=== PATIENT | female | born 1940 | race Caucasian/White ===

== ENCOUNTER 2016-09-06 08:38 | Outpatient (CLI) | payer MEDICARE, BC ==
[2016-09-06 08:58] LABS: Hemoglobin A1c 11.6 % (4.0-6.0)
[2016-09-06 09:06] LABS: Anion Gap 14 mmol/L (10-20); BUN (Urea Nitrogen) 12 mg/dL (9.8-20.1); Calc. Creatinine Clearance 0 mL/min (70-130); Calcium 9.4 mg/dL (7.8-10.44); Carbon Dioxide 26 mmol/L (23-31); Chloride 98 mmol/L (98-107); Estimated GFR-MDRD 55; Glucose 428 mg/dL (83-110); Potassium 4.4 mmol/L (3.5-5.1); Sodium 134 mmol/L (136-145)
== END 2016-09-06 08:39 | disposition home or self-care (01) ==
LOC: MADLABBHPM 08:38
PROVIDERS: ATTEND Family Medicine
DX: R73.9 Hyperglycemia, unspecified (principal)
CPT/HCPCS: 36415; 80048; 83036

== ENCOUNTER 2016-09-09 11:05 | Outpatient (CLI) | payer MEDICARE, BC ==
--- NOTE | 2016-09-09 13:59 | RAD ---
LUMBAR SPINE SERIES THREE VIEWS HISTORY: Fall with back pain. COMPARISON: 04/06/2014 FINDINGS: There is a scoliotic deformity, convexed to the left. There are marked arthritic changes, with brit re disk narrowing at L2-L3, L3-L4, and L4-L5. No compression fractures. Pedicles are intact. IMPRESSION: Scoliosis and arthritic changes of the spine. POS: [facility]
--- NOTE | 2016-09-09 14:01 | RAD ---
THORACIC SPINE SERIES HISTORY: Fall a week ago with back pain. COMPARISON: 04/06/2014 FINDINGS: The vertebral bodies maintain normal height. There are some arthritic changes. No compression frac tures. IMPRESSION: No evidence of acute injury. POS: [facility]
== END 2016-09-09 11:06 | disposition home or self-care (01) ==
LOC: MADRAD 11:05
PROVIDERS: ATTEND Family Medicine
DX: M54.5 Low back pain (principal); M41.9 Scoliosis, unspecified
CPT/HCPCS: 72070; 72100

== ENCOUNTER 2017-06-17 18:04 | Emergency (ER) | payer BC, MEDICARE ==
--- NOTE | 2017-06-17 19:11 | RAD ---
CHEST TWO VIEWS: 06/17/17 HISTORY: Cough. Altered mental status. COMPARISON: 11/30/15. FINDINGS: There is atherosclerosis of the aorta. Enlarged cardiac silhouette. Pulmonary vessels are slightly pr ominent. Costophrenic angles are clear. In the lateral projection, there is increased density suggest ing a possible left lower lobe infiltrate. Adequate aeration of the upper lungs. No pneumothorax or o sseous abnormalities. IMPRESSION: 1. Left lower lobe infiltrate. Continued surveillance. 2. Atherosclerosis. POS: [facility]
[2017-06-17] MEDS ORDERED: Amoxicillin/Potassium Clav 500 MG TAB ONE (19:22)
== END 2017-06-17 19:25 | disposition home or self-care (01) ==
LOC: MADERS 18:04
DX: J18.9 Pneumonia, unspecified organism (principal); E87.1 Hypo-osmolality and hyponatremia; I11.0 Hypertensive heart disease with heart failure; I50.9 Heart failure, unspecified; K21.9 Gastro-esophageal reflux disease without esophagitis; E55.9 Vitamin D deficiency, unspecified; E03.9 Hypothyroidism, unspecified; F03.90 Unspecified dementia, unspecified severity, without behavioral disturbance, psychotic disturbance, mood disturbance, and anxiety; F41.9 Anxiety disorder, unspecified; F31.9 Bipolar disorder, unspecified; Z87.01 Personal history of pneumonia (recurrent)
CPT/HCPCS: 71046